=== PATIENT | male | born 1970 | race Caucasian/White ===

== ENCOUNTER 2018-12-13 14:01 | Inpatient (IN) ==
[2018-12-13] MEDS ORDERED: PHENOBARBITAL IV PRN (16:08)
[2018-12-13] MEDS ORDERED: TYLENOL PO PRN (16:08)
[2018-12-13] MEDS ORDERED: IMODIUM PO PRN ×2 (16:08)
[2018-12-13] MEDS ORDERED: ZOFRAN IV PRN (16:08)
[2018-12-13] MEDS ORDERED: MAALOX PLUS LIQUID PO PRN (16:08)
[2018-12-13] MEDS ORDERED: TUBERSOL ID ONE (16:08)
[2018-12-13] MEDS ORDERED: D5W 1,000 ML IV PRN (16:08)
[2018-12-13] MEDS ORDERED: SEROQUEL PO PRN (16:08)
[2018-12-13] MEDS ORDERED: DESYREL PO PRN (16:08)
[2018-12-13] MEDS ORDERED: ZOFRAN IM PRN (16:08)
[2018-12-13] MEDS ORDERED: SENOKOT PO PRN (16:08)
[2018-12-13] MEDS ORDERED: NICODERM PATCH TD PRN (16:08)
[2018-12-13] MEDS ORDERED: DULCOLAX PR PRN (16:08)
[2018-12-13 16:38] LABS: URINE SOURCE CLEAN CATCH
[2018-12-13] MEDS: ZOFRAN ODT PO PRN (16:42)
[2018-12-13 17:05] LABS: HEMATOCRIT 37.6 % (42.0-52.0); HEMOGLOBIN 12.8 g/dL (14.0-18.0); MCH 32.2 PG (27-31); MCV 94.7 FL (81-99); MPV 9.5 FL (7.4-10.4); RBC 3.97 XMIL (4.7-6.1); RDW 11.8 % (11.5-14.5); WBC 6.23 X1000 (4.8-10.8)
[2018-12-13] MEDS ORDERED: BENTYL PO PRN (17:07)
[2018-12-13] MEDS ORDERED: SALINE LOCK IV FLUID XX ONE (17:07)
[2018-12-13 17:20] LABS: PROTIME 13.7 Seconds (11.0-16.0)
[2018-12-13 17:24] LABS: AGAP 18; ALBUMIN 3.8 g/dL (3.5-5.0); ALKALINE PHOSPHATASE 121 U/L (32-122); AMYLASE 51 U/L (20-200); BUN 8 mg/dL (8-22); CALCIUM 10.2 mg/dL (8.8-10.2); CHLORIDE 98 mmol/L (98-107); COSMO 272; ESTIMATED GFR > 60; GLUCOSE 101 mg/dL (70-104); GOT 91 U/L (10-34); GPT 53 U/L (10-44); LIPASE 71 U/L (13-60); POTASSIUM 3.2 mmol/L (3.5-5.1); SODIUM 137 mmol/L (136-145); TCO2 21 mmol/L (25-35); TOTAL PROTEIN 7.6 g/dL (6.3-8.3)
[2018-12-13] MEDS: LIBRIUM PO SCH ×2 (17:26→22:54)
[2018-12-13 17:48] LABS: BILIRUBIN URINE NEGATIVE (NEGATIVE); BLOOD URINE TRACE (NEGATIVE); CLARITY SL. CLOUDY (CLEAR); COLOR YELLOW; GLUCOSE URINE NEGATIVE (NEGATIVE); KETONE URINE TRACE mg/dL (NEGATIVE); LEUKOCYTES URINE TRACE (NEGATIVE); NITRITE URINE NEGATIVE (NEGATIVE); PH URINE 6.5; PROTEIN URINE 1+(30 mg/dL) mg/dL (NEGATIVE); SP GRAVITY URINE 1.015; UROBILINOGEN URINE NORMAL
[2018-12-13 18:02] LABS: URINE BACTERIA 1+ /HFP; URINE CAST NONE SEEN /LPF; URINE CRYSTAL URIC ACID PRESENT /HPF; URINE EPITHELIAL CELLS <10 /HPF (<10); URINE RBC <10 /HPF (<10); URINE WBC <10 /HPF (<10); URINE YEAST NONE SEEN /HPF
[2018-12-13 18:09] LABS: UR AMPHETAMINES QUAL PRESUMPTIVE POSITIVE (NONE DETECT); UR BARBITUATES QUAL NONE DETECTED (NONE DETECT); UR BENZODIAZEPIN QUAL PRESUMPTIVE POSITIVE (NONE DETECT); UR CANNABINOIDS QUAL NONE DETECTED (NONE DETECT); UR COCAINE QUAL NONE DETECTED (NONE DETECT); UR METHADONE QUAL NONE DETECTED (NONE DETECT); UR METHAMPHETAMINE QUAL NONE DETECTED (NONE DETECT); UR OPIATES QUAL NONE DETECTED (NONE DETECT); UR OXYCODONE QUAL NONE DETECTED (NONE DETECT); UR PCP QUAL NONE DETECTED (NONE DETECT); UR PROPOXYPHENE QUAL NONE DETECTED (NONE DETECT); UR TCA QUAL NONE DETECTED (NONE DETECT)
[2018-12-13] MEDS ORDERED: M.V.I.-12 10 ML, FOLIC ACID 1 MG, MAGNESIUM SULFATE 1 GM, THIAMINE 100 MG in NS 1,000 ML IV ONE (18:30)
[2018-12-13] MEDS: APRESOLINE IV SCH (21:17)
[2018-12-13] MEDS: ATARAX PO PRN (21:30)
[2018-12-14] MEDS: APRESOLINE IV SCH (01:30)
[2018-12-14] MEDS: LIBRIUM PO SCH ×3 (04:49→17:12)
[2018-12-14] MEDS: PROTONIX PO SCH (06:26)
[2018-12-14] MEDS ORDERED: KLOR-CON PO ONE (07:13)
[2018-12-14] MEDS: VITAMIN B-1 PO SCH (08:05)
[2018-12-14] MEDS: THERA M PLUS PO SCH (08:05)
[2018-12-14] MEDS: FOLIC ACID PO SCH (08:05)
[2018-12-14] MEDS: ROBAXIN PO PRN ×2 (11:59→21:45)
[2018-12-14] MEDS ORDERED: APRESOLINE IV ONE (12:20)
[2018-12-14] MEDS: ATARAX PO PRN (18:44)
[2018-12-14] MEDS: MOTRIN PO PRN (21:45)
--- NOTE | 2018-12-14 22:07 | PROGRESS NOTE ---
DATE: 12/14/2018 SUBJECTIVE: Patient notes that he is feeling a little bit better. Denies any tremors. Denies myalgias, fevers or chills. PHYSICAL EXAMINATION: Vital Signs: Reviewed. General: Patient is awake, alert, currently in no respiratory distress. HEENT: Normocephalic. Neck: Supple. Cardiovascular: Regular rate. Chest: Clear. Abdomen: Soft. Extremities: Moves all extremities. Neurologic: No changes. ASSESSMENT: 1. Nausea and vomiting. 2. Abdominal pain. 3. Myalgias. 4. Paresthesias. 5. Paroxysmal sweating. 6. Alcohol abuse withdrawal and stabilization. PLAN: We will continue patient hospital. Continue to follow. Continue to wean Librium. Further orders as needed. cc: Solo Bowling MD
[2018-12-15] MEDS: LIBRIUM PO SCH ×5 (00:09→21:32)
[2018-12-15] MEDS: PROTONIX PO SCH (06:03)
[2018-12-15] MEDS: COZAAR PO SCH (09:20)
[2018-12-15] MEDS: VITAMIN B-1 PO SCH (09:20)
[2018-12-15] MEDS: THERA M PLUS PO SCH (09:20)
[2018-12-15] MEDS: FOLIC ACID PO SCH (09:20)
[2018-12-15] MEDS: ZOFRAN ODT PO PRN ×2 (09:52→21:30)
[2018-12-15] MEDS: APRESOLINE PO SCH ×2 (14:14→21:30)
[2018-12-15] MEDS: NICOTINE GUM BUCCAL PRN (14:35)
--- NOTE | 2018-12-15 19:20 | PROGRESS NOTE ---
DATE: 12/15/2018 SUBJECTIVE: The patient states he is feeling a lot better. He is still having some muscle weakness and fatigue. Denies any tremors. Denies any paresthesias. OBJECTIVE: Vital signs reviewed. Temperature 98 degrees, pulse 55, respiratory 18, BP 172/81.General: The patient is awake, currently in no respiratory distress. HEENT: Normocephalic. Neck supple. Cardiovascular: Regular rate. Chest clear. Abdomen soft. Extremities: Moves all extremities. Neurologic: No focal changes. Skin warm and dry. No rashes. ASSESSMENT: 1. Hypertension. His blood pressure is elevated. We are going to add losartan. 2. Nausea and vomiting. 3. Abdominal pain. 4. Myalgias. 5. Paresthesias. 6. Paroxysmal sweating. 7. Alcohol abuse, withdrawal and stabilization. PLAN: We will continue the patient in the hospital. Add losartan. Continue Librium taper. Further orders as needed. cc: Solo Bowling MD
[2018-12-16] MEDS: LIBRIUM PO SCH ×3 (00:34→10:52)
[2018-12-16] MEDS: APRESOLINE PO SCH ×3 (04:18→22:10)
[2018-12-16] MEDS: PROTONIX PO SCH ×2 (04:18→06:39)
[2018-12-16] MEDS: VITAMIN B-1 PO SCH (09:58)
[2018-12-16] MEDS: FOLIC ACID PO SCH (09:58)
[2018-12-16] MEDS: COZAAR PO SCH (09:58)
[2018-12-16] MEDS: THERA M PLUS PO SCH (09:58)
[2018-12-16] MEDS: NICOTINE GUM BUCCAL PRN (10:52)
[2018-12-16] MEDS: ATARAX PO PRN (22:09)
[2018-12-17] MEDS: ROBAXIN PO PRN (04:25)
[2018-12-17] MEDS: APRESOLINE PO SCH (04:25)
[2018-12-17] MEDS: MOTRIN PO PRN (04:25)
[2018-12-17] MEDS: NICOTINE GUM BUCCAL PRN (04:26)
[2018-12-17] MEDS: PROTONIX PO SCH (06:26)
[2018-12-17 07:51] VITALS: BP 135/92
[2018-12-17] MEDS ORDERED: LIBRIUM PO SCH (09:15)
[2018-12-17] MEDS: ZOFRAN ODT PO PRN (09:34)
[2018-12-17] MEDS: COZAAR PO SCH (10:16)
[2018-12-17] MEDS: FOLIC ACID PO SCH (10:16)
[2018-12-17] MEDS: THERA M PLUS PO SCH (10:16)
[2018-12-17] MEDS: VITAMIN B-1 PO SCH (10:16)
--- NOTE | 2018-12-17 14:10 | PROGRESS NOTE ---
DATE: 12/16/2018 SUBJECTIVE: Patient notes he still feels weak. He is sleeping most of the day. Denies any fevers, chills. States he feels tired and is concerned about going home due to his fatigue. PHYSICAL EXAMINATION: Vital Signs: Reviewed. He is awake, alert. He is in no current respiratory distress. HEENT: Normocephalic, atraumatic. SANDIP. Neck: Supple. Cardiovascular: Regular rate. Chest: Clear. Abdomen: Soft. Extremities: Moves all extremities. Neurologic: No focal changes. ASSESSMENT: 1. Nausea, vomiting, abdominal pain. 2. Myalgias. 3. Paresthesias. 4. Paroxysmal sweating. 5. Alcohol abuse withdrawal and stabilization. PLAN: We will continue patient in the hospital today due to his fatigue and general weakness. We will continue to follow. We will decrease his Librium further. Hopefully home tomorrow if symptoms improve. cc: Solo Bowling MD
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
== END 2018-12-17 12:30 | disposition home or self-care (01) | DRG 392 ==
LOC: P.DIRADM 14:01 → P.MEDSURG 14:27
PROVIDERS: ADMIT Family Medicine; ATTEND Family Medicine